=== PATIENT | male | born 1970 | race Caucasian/White ===

== ENCOUNTER 2016-09-26 12:49 | Emergency (ER) | payer SELFPAY ==
[~2016-09-26] VITALS: Ht 175.3 cm; Wt 91.0 kg
[~2016-09-26 12:49] MED LIST: QUET300 PO; Z.0.NO CURRENT MEDS
[2016-09-26 12:55] VITALS: BP 137/88; PULSE 79; RESP 16; TEMP 98.1; O2SAT 98
[2016-09-26] MEDS ORDERED: MUPI2OIN TOPICAL (13:52)
[2016-09-26] MEDS ORDERED: KETO2CRE TOPICAL (13:52)
[2016-09-26] MEDS ORDERED: BACT800T5 PO (13:52)
[2016-09-26] MEDS ORDERED: CEPH-460 PO (13:52)
--- NOTE | 2016-09-26 13:53 | PD ---
HPI Chief Complaint: Skin Problem Time Seen by Provider: 13:42 Travel History International Travel<30 days: No Contact w/Intl Traveler<30days: No Traveled to known affect area: No History of Present Illness HPI Patient is a 46-year-old male presenting to emergency for evaluation of right foot, left hand, right layne skin infection. Patient states he started on his right foot 3 weeks ago, he's been applying peroxide and alcohol. He denies any fever, chills, nausea, vomiting, chest pain, shortness of breath. He denies any history of diabetes or hypertension. He further denies any IV drug use. He states at times it's painful, sore and rates his pain a 4 out of 10. 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 PFSH Past Medical History Bipolar Disorder: Yes Diminished Hearing: No Neurologic: Yes (multiple sclerosis) Past Surgical History Surgical History: No Previous Surgery Social History Alcohol Use: Yes Tobacco Use: Yes (1 PPD) Substance Use: Yes Allergies-Medications (Allergen,Severity, Reaction): Coded Allergies: No Known Allergies (Verified , 09/26/16) Reported Meds & Prescriptions Reported Meds & Active Scripts Active Reported Quetiapine Fumarate 300 mg (Quetiapine Fumarate) 300 Mg Tab 300 Mg PO HS No Current Meds (Miscellaneous Medication) Misc Review of Systems Except as stated in HPI: all other systems reviewed are Neg Skin: Positive Rash, Positive Itching, Positive Lesions Physical Exam Narrative GENERAL: Well-developed, well-nourished, alert male. Resting comfortably in no acute distress. SKIN: Warm and dry. There are well demarcated lesions to the right foot on the medial aspect, one superficial ulceration measuring approximately 1 cm in diameter. There is a scab lesion to the right layne and a scabbed lesion to the dorsal aspect of the left hand and left second finger. HEAD: Atraumatic. Normocephalic. EYES: Pupils equal and round. No scleral icterus. No injection or drainage. ENT: No nasal bleeding or discharge. Mucous membranes pink and moist. NECK: Trachea midline. No JVD. CARDIOVASCULAR: Regular rate and rhythm. No murmur appreciated. RESPIRATORY: No accessory muscle use. Clear to auscultation. Breath sounds equal bilaterally. GASTROINTESTINAL: Abdomen soft, non-tender, nondistended. Hepatic and splenic margins not palpable. MUSCULOSKELETAL: No obvious deformities. No clubbing. No cyanosis. No edema. Positive pedal pulses, brisk less than 3 second capillary refill. Positive radial pulse, brisk less than 3 second capillary refill. Full range of motion in all 4 extremities. Patient is neurovascularly intact. NEUROLOGICAL: Awake and alert. No obvious cranial nerve deficits. Motor grossly within normal limits. Normal speech. PSYCHIATRIC: Appropriate mood and affect; insight and judgment normal. Data Data Last Documented VS Vital Signs Date Time Temp Pulse Resp B/P Pulse Ox O2 Delivery O2 Flow Rate FiO2 09/26/16 12:55 98.1 79 16 137/88 98 [facility] Medical Decision Making Medical Screen Exam Complete: Yes Emergency Medical Condition: Yes Interpretation(s) Vital Signs Date Time Temp Pulse Resp B/P Pulse Ox O2 Delivery O2 Flow Rate FiO2 09/26/16 12:55 98.1 79 16 137/88 98 Differential Diagnosis Tinea versus cellulitis is impetigo versus contact dermatitis versus other Narrative Course Patient is a 46-year-old male presenting to emergency for evaluation of a skin infection and started on the right foot and appears to be spreading to the layne and the left hand. Physical presentation appears more consistent with tinea with a superimposed skin infection secondary to poor hygiene and using the peroxide. Patient has no history of diabetes or hypertension, he has no circulatory deficits. It would be feasible at this time to trial patient on outpatient antibiotics. Patient was advised strongly to avoid any further use of peroxide. He was advised to clean with soap and water only and apply dry nonocclusive dressing. He was advised to change his socks several times daily to keep his feet dry. He was advised to bandage hand with gauze to avoid sweat building up in the rubber gloves while working. He was also advised to change his gloves frequently. Patient verbalized understanding of these instructions. He was advised to return to emergency department if he did not see any improvement within 48 to 72 hours. Patient is stable for discharge. Diagnosis Primary Impression: Tinea corporis Additional Impression: Skin infection Referrals: Primary Care Physician 2 days Patient Instructions: General Instructions, Tinea Corporis ([place]), Tinea Pedis ( [place]) Additional Instructions: Take medications as directed Keep your feet and hand clean, dry. Apply gauze to open areas, change socks frequently, change or gloves at work frequently Return to emergency department if no improvement or if any worsening of symptoms. Follow-up with her primary doctor Med/Other Pt SpecificInfo: Prescription(s) given Scripts Ketoconazole Topical 2% Cream1 Applic TOPICAL BID #15 GM Ref 0 Prov:Kizzy Vicente 09/26/16 Mupirocin Topical 2 % Oint1 Applic TOPICAL BID #22 GM Ref 0 Prov:Kizzy Vicente 09/26/16 Cephalexin (Keflex)500 Mg Pnm003 Mg PO Q12H 10 Days Ref 0 Prov:Kizzy Vicente 09/26/16 Sulfamethoxazole-Trimethoprim (Bactrim DS)800-160 Mg Tab1 Tab PO BID #20 TAB Ref 0 Do not use on open areas! apply to foot and finger as directed Prov:Kizzy Vicente 09/26/16 Disposition: 01 DISCHARGE HOME Condition: Stable Kizzy Vicente Sep 26, 2016 13:53
== END 2016-09-26 14:15 | disposition home or self-care (01) ==
LOC: NETRI 12:49
DX: B35.4 Tinea corporis (principal); L08.9 Local infection of the skin and subcutaneous tissue, unspecified; G35 Multiple sclerosis; B95.62 Methicillin resistant Staphylococcus aureus infection as the cause of diseases classified elsewhere; B95.0 Streptococcus, group A, as the cause of diseases classified elsewhere; F17.210 Nicotine dependence, cigarettes, uncomplicated
CPT/HCPCS: 86403; 87070; 87186; 99283